=== PATIENT | female | born 2000 | race African-American/Black ===

== ENCOUNTER 2024-07-25 21:25 | Emergency (ER) | payer OTHER ==
[2024-07-25] MEDS ORDERED: Ketorolac Tromethamine 30 MG (1 mL) VIAL ONE (22:15)
== END 2024-07-25 23:09 | disposition home or self-care (01) ==
LOC: CSHERS 21:25
DX: J06.9 Acute upper respiratory infection, unspecified (principal)
CPT/HCPCS: 87081; 87428; 87430; 96372; 99283; J1885